=== PATIENT | male | born 1980 | race Caucasian/White ===

== ENCOUNTER 2017-06-03 12:38 | Emergency (ER) | payer OTHER ==
[2017-06-03 12:52] VITALS: BP 126/68
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
--- NOTE | 2017-06-04 17:30 | CR ---
Right shoulder: Three views of the right shoulder were obtained. Comparison: No previous shoulder study. Previous shoulder surgery is seen with 2 anchors seen within the anterior glenoid. Acromioclavicular joint appears within normal limits. Minimal inferior spurring is seen off the inferior medial humeral head. No acute fracture, dislocation or other bony abnormality is seen. Impression: 1. Slight degenerative change within the glenohumeral joint. Previous surgery. 2. No additional abnormality is appreciated on right shoulder study. Diagnostic code #2
== END 2017-06-03 14:00 | disposition home or self-care (01) ==
LOC: JD.ED 12:38
DX: S49.91XA Unspecified injury of right shoulder and upper arm, initial encounter (principal); X58.XXXA Exposure to other specified factors, initial encounter
CPT/HCPCS: 73030-26-RT; 73030-RT; 99283